=== PATIENT | female | born 1985 | race Caucasian/White ===

== ENCOUNTER 2020-03-19 13:15 | Outpatient (REF) | payer OTHER, SELFPAY ==
[2020-03-19 16:32] LABS: MANUAL DIFF FLAG NO
[2020-03-19 16:37] LABS: Basophils Absolute Auto 0.1 X10*3/uL (0.0-0.2); Basophils Percent Auto 0.6 % (0-2); Eosinophils Absolute Auto 0.3 X10*3/uL (0.0-0.4); Eosinophils Percent Auto 3.2 % (0-4); Hematocrit 41.7 % (37-47); Hemoglobin 13.5 g/dl (12.0-16.0); Imm Gran Abs Auto 0.03 X10*3/uL (0.00-0.03); Imm Gran Pct Auto 0.4 % (0.0-0.4); Lymphocytes Absolute Auto 1.8 X10*3/uL (1.2-4.9); Lymphocytes Percent Auto 23.5 % (20-40); Mean Corpuscular HGB Conc 32.4 g/dl (31.0-35.0); Mean Corpuscular Hemoglobin 29.6 pg (27.0-33.0); Mean Corpuscular Volume 91.4 fL (80-98); Mean Platelet Volume 11.6 fL (9.4-12.3); Monocytes Absolute Auto 0.6 X10*3/uL (0.1-1.2); Neutrophils Absolute Auto 5.1 X10*3/uL (2.0-8.3); Neutrophils Percent Auto 65.3 % (45-73); Platelet Count 279 X10*3/uL (160-400); Red Blood Count 4.56 X10*6/uL (4.20-5.50); Red Cell Distribution Width 11.9 % (11.0-16.0); White Blood Count 7.8 X10*3/uL (4.8-10.8)
[2020-03-19 16:45] LABS: Anion Gap 11 (12-20); Blood Urea Nitrogen 12 mg/dL (9-16); Calcium 9.1 mg/dL (8.4-10.2); Carbon Dioxide 29 mmol/L (22-29); Chloride 103 mmol/L (96-108); Estimated Glomerular Filt Rate > 60; Magnesium 2.1 mg/dL (1.6-2.6); Phosphorus 3.4 mg/dL (2.7-4.5); Potassium 4.3 mmol/l (3.3-5.1); Sodium 139 mmol/L (135-145)
[2020-03-19 16:53] LABS: Glucose Urine UA NEG (NEG); Leukocyte Esterase Urine NEG (NEG); Nitrite Urine NEG (NEG); PH 5.5 (5.0-8.0); Specific Gravity - Urine 1.025 (1.005-1.025); Urine Blood 2+ (NEG); Urine Ketones NEG (NEG); Urine Protein NEG (NEG-TRACE)
[2020-03-19 16:55] LABS: Appearance Urine CLEAR; Color Urine YELLOW
[2020-03-19 17:07] LABS: Squamous Epithelial Cell Urine TRACE /LPF; WBC Urine 0 /HPF (0-4)
[2020-03-19 17:09] LABS: Renal w Reflex-LAB USE ONLY Order Verified
[2020-03-19 17:11] LABS: Creatinine Urine 119.25 mg/dL; Protein/Creatinine Ratio, Ur 0.13 (<0.2); Total Protein Urine Random 16 mg/dL (<12)
[2020-03-19 17:12] LABS: Creatinine Urine 121.16 mg/dL; Microalbum/Creatinine Ratio Ur 70.1 ug/mg cr; Total Protein Urine Random 16 mg/dL (<12)
[2020-03-19 18:02] LABS: Renal w Reflex Lab Use Only Order verified
== END 2020-03-19 13:16 | disposition home or self-care (01) ==
LOC: HO.HMGCLDS 13:15
PROVIDERS: PCP Nurse Practitioner Family; Visit Provider Internal Medicine Nephrology
DX: R80.9 Proteinuria, unspecified (principal); R31.9 Hematuria, unspecified
CPT/HCPCS: 36415; 80051; 81001; 82040; 82043; 82306; 82310; 82565; 83735; 84100; 84156; 84520; 85025

== ENCOUNTER 2021-08-09 15:15 | Outpatient (REF) | payer OTHER, SELFPAY ==
[2021-08-09 15:35] LABS: MANUAL DIFF FLAG NO
[2021-08-09 15:43] LABS: Basophils Percent Auto 0.5 % (0-2); Eosinophils Absolute Auto 0.3 X10*3/uL (0.0-0.4); Eosinophils Percent Auto 3.7 % (0-4); Hematocrit 43.1 % (37.0-47.0); Hemoglobin 14.4 g/dl (12.0-16.0); Imm Gran Abs Auto 0.02 X10*3/uL (0.00-0.03); Imm Gran Pct Auto 0.3 % (0.0-0.4); Lymphocytes Absolute Auto 2.9 X10*3/uL (1.2-4.9); Lymphocytes Percent Auto 37.8 % (20-40); Mean Corpuscular HGB Conc 33.4 g/dl (31.0-35.0); Mean Corpuscular Hemoglobin 30.2 pg (27.0-33.0); Mean Corpuscular Volume 90.4 fL (80.0-98.0); Mean Platelet Volume 11.2 fL (9.4-12.3); Monocytes Absolute Auto 0.5 X10*3/uL (0.1-1.2); Monocytes Percent Auto 6.3 % (2-11); Neutrophils Percent Auto 51.4 % (45-73); Platelet Count 275 X10*3/uL (160-400); Red Blood Count 4.77 X10*6/uL (4.20-5.50); Red Cell Distribution Width 11.8 % (11.0-16.0); White Blood Count 7.8 X10*3/uL (4.8-10.8)
[2021-08-09 15:57] LABS: Estimated Average Glucose 80 mg/dL; Hemoglobin A1c % 4.4 %
[2021-08-09 16:06] LABS: Anion Gap 13 (12-20); Blood Urea Nitrogen 10 mg/dL (9-16); Calcium 9.6 mg/dL (8.4-10.2); Carbon Dioxide 23 mmol/L (22-29); Chloride 107 mmol/L (96-108); Cholesterol 194 mg/dL; Estimated Glomerular Filt Rate > 60; HDL Cholesterol 38 mg/dL; Iron 64 mcg/dL (30-160); LDL Cholesterol Calculated 138 mg/dl; Magnesium 2.1 mg/dL (1.6-2.6); Percent Iron Saturation 26 % (15-50); Potassium 4.3 mmol/L (3.3-5.1); Sodium 139 mmol/L (135-145); Total Iron Binding Capacity 248 mcg/dL (228-428); Triglycerides 92 mg/dL; Unsaturated Iron Binding 184 ug/dL
[2021-08-09 16:28] LABS: Ferritin 94 ng/mL (10-122)
== END 2021-08-09 15:16 | disposition home or self-care (01) ==
LOC: HO.LAB 15:15
PROVIDERS: PCP Nurse Practitioner Family; Visit Provider Internal Medicine Nephrology
DX: I10 Essential (primary) hypertension (principal)
CPT/HCPCS: 36415; 80051; 80061; 82310; 82565; 82728; 83036; 83540; 83735; 84520; 85025

== ENCOUNTER 2022-08-21 23:40 | Emergency (ER) | payer OTHER, SELFPAY ==
[2022-08-21 23:50] VITALS: BP 126/72; PULSE 90; RESP 16; TEMP 36.6; O2SAT 98; BMI 23.5
[2022-08-22 00:03] VITALS: BP 146/74; PULSE 108; RESP 17; O2SAT 100
--- NOTE | 2022-08-22 00:09 | ED.EYEPROB ---
HPI - Eye Problem General Chief complaint: Eye Problems Stated complaint: Sprayed by animal in left eye Time Seen by Provider: 08/22/22 00:09 Source: patient Mode of arrival: ambulatory Limitations: no limitations History of Present Illness HPI Narrative: Patient lying on the floor sting bug fell on her eye she rubbed and after that noticed irritation left eye patient washer arrive prior to arrival still feeling slightly irritated watering of the eye vision is normal Related Data Previous Rx's Medication Instructions Recorded ketotifen fumarate 0.025 % (0.035 1 drp ophthalmic-Left Q12H PRN 08/22/22 %) eye drops ([place]) allergy symptoms #5 mL Allergies Allergy/AdvReac Type Severity Reaction Status Date / Time No Known Allergies Allergy Unverified 02/05/20 19:01 [No Known Allergies*] Review of Systems Review of Systems: Yes all other systems are reviewed and are negative [facility] Social History Social History Advance Directives: No Advance Directives Information Provided: Yes Physical Exam Vital Signs: Vital Signs: Last Vital Signs Temp 98 F 08/21/22 23:50 Pulse 108 H 08/22/22 00:03 Resp 17 08/22/22 00:03 BP 146/74 H 08/22/22 00:03 Pulse Ox 100 08/22/22 00:03 O2 Del Method Room Air 08/22/22 00:03 BMI result Body Mass Index 23.5 Const: General: healthy appearing Nutritional Appearance: average body habitus Orientation/consciousness: patient oriented x3 Eyes: Eyelids: Yes eyelids normal Conjunctivae: other (Slight erythema Irritation of the left eye) Sclerae: sclerae normal Corneas: corneas normal Pupils: Equal, round and reactive pupils present EOM: EOMs intact bilaterally Neuro: General: patient oriented x3 Cranial nerves: Yes Equal, round and reactive pupils present Medical Decision Making Medical Decision Making MDM Narrative: Patient with mild allergic reaction to spray of the sting [place] to the left eye was given Benadryl in the ER discharge patient home on keto profen eyedrops Discharge Plan Discharge Clinical Impression: Acute allergic conjunctivitis of left eye Patient Disposition: Home, Self-Care Instructions: Conjunctivitis (ED) Additional Instructions: Local care as adv Eyedrops as prescribed for irritation Prescriptions: New ketotifen fumarate [[place]] 0.025 % (0.035 %) drops 1 drp ophthalmic-Left Q12H PRN (Reason: allergy symptoms) Qty: 5 0RF
[2022-08-22] MEDS: diphenhydrAMINE HCL 25 MG CAPSULE PO (00:38)
== END 2022-08-22 00:41 | disposition home or self-care (01) ==
PROVIDERS: Emergency Provider Internal Medicine
DX: H10.12 Acute atopic conjunctivitis, left eye (principal)
CPT/HCPCS: 99282; 99283